=== PATIENT | male | born 1990 | race Caucasian/White ===

== ENCOUNTER 2018-05-04 08:11 | Inpatient (IN) | payer BC ==
[2018-05-04] VITALS (11 sets, daily range): BP systolic 128–144; BP diastolic 74–102
[~2018-05-04] VITALS: Ht 185.4 cm; Wt 79.0 kg
[~2018-05-04 08:11] MED LIST: BENZTROPINE MESY1 MG PO; BUSPIRONE HCL15 MG PO; GABAPENTIN600 M1 PO; HYDROXYZINE PAM25 MG PO; LEXAPRO5 M1 PO; RISPERIDONE1 MG PO
--- NOTE | 2018-05-04 08:16 | NUR ---
PT BIBA S/P DRUG OVERDOSE. PER PARAMEDICS, EMS WAS CALLED BY DAD WHO SAW PT POUR CLEAR LIQUID INTO HIS COFFEE. UPON ARRIVAL TO SCENE PT WAS COMBATIVE WITH FIRE. PT RAN FROM FIRE YELLING PROFANITIES. PTS FATHER REPORTED TO EMS THAT PT STATED HE WANTED TO "END IT". PER PARAMEDICS, PT HAS OVERDOSED ON GHB IN THE PAST. PER FIRE, PT'S VITALS WERE STABLE IN TRANSPORT. IV ESTABLISHED TO L AC 18G BY MOIZ BALDWIN. PT HAS HX OF DEPRESSION AND SCHIZOPHRENIA AND DRUG ABUSE. UPON ARRIVAL PT IS SLEEPING AND UNAROUSABLE WITH TACTILE STIMULATION. DR SOTO AT BEDSIDE FOR MSE. PT ON FULL CM. VITALS STABLE AT THIS TIME.
--- NOTE | 2018-05-04 08:40 | NUR ---
PER FATHER, PT PUT GHB IN HIS COFFEE PRIOR TO FATHER CALLING EMS, FATHER REPORTS APPROXIMATELY 1OZ
--- NOTE | 2018-05-04 08:45 | NUR ---
DR SOTO AT BEDSIDE FOR INTUBATION 0846- NARCAN 0.4 MG IVP, NO RESPONSE FROM PT 0850- SUCCINYLCHOLINE 70MG IVP 0851- PT INTUBATED BY DR SOTO
--- NOTE | 2018-05-04 08:57 | NUR ---
SPOKE W/CARLOS FROM POISON CONTROL WHO ADVISED TO CONTINUE W/RESPIRATORY SUPPORT WELL RULE OUT OTHER SUBSTANCES HE MAY HAVE TAKEN TO HARM HIMSELF. DUE TO PT'S RELATIVE ACTIVATING EMS SOON AFTER WITNESSING PT INGESTING LIQUID, AND PT CURRENTLY INTUBATED, HYPOXIA IS NO LONGER OF CONCERN. NO OTHER MEASURES OTHER THAN OBSERVATIONS NEEDED AND PT IS EXPECTED TO WAKE UP AFTER A COUPLE OF HOURS. PRIMARY RN AND DR. SOTO MADE AWARE.
[2018-05-04 09:52] LABS: BASOPHIL % 0.3 % (0-2); PLATELET COUNT 276 x10^3mcL (130-400); RED CELL DISTRIBUTION WIDTH 13.2 % (11.5-14.5)
[2018-05-04 10:03] LABS: CALCIUM 9.3 mg/dL (8.5-10.1); CARBON DIOXIDE 22.4 mmol/L (21-32); CHLORIDE SERUM 104 mmol/L (98-107); CREATININE SERUM 1.2 mg/dL (0.7-1.3); GFR1 > 60 mL/min; GLUCOSE SERUM 81 mg/dL (74-106); POTASSIUM SERUM 5.3 mmol/L (3.5-5.1); SODIUM SERUM 141 mmol/L (136-145)
--- NOTE | 2018-05-04 10:04 | NUR ---
PTS FATHER AT BEDSIDE
[2018-05-04 10:08] LABS: ALBUMIN 4.2 g/dL (3.4-5.0); ALKALINE PHOSPHATASE 90 U/L (46-116); ALT/SGPT 8 U/L (16-63); AST/SGOT 41 U/L (15-37); BILIRUBIN TOTAL 0.2 mg/dL (0.20-1.00)
[2018-05-04 10:16] LABS: TOTAL PROTEIN, SERUM 8.3 g/dL (6.4-8.2)
--- NOTE | 2018-05-04 10:57 | NUR ---
FATHER: CORBY PEDRAZA
--- NOTE | 2018-05-04 11:07 | NUR ---
PT TAKEN TO CT VIA GURKERRI BY NURSE MAGALI, RT HANNAH, AND VERIFICATION MANAGER
[2018-05-04 11:43] LABS: MAGNESIUM 2.3 mg/dL (1.8-2.4); PHOSPHOROUS 2.5 mg/dL (2.5-4.9)
[2018-05-04 11:43] LABS: microscopic required? NO
[2018-05-04 11:44] LABS: CHOLESTEROL/HDL RATIO 4.8
[2018-05-04 11:49] LABS: urine erythrocyte NEGATIVE (NEGATIVE)
[2018-05-04] MEDS ORDERED: BUSPIRONE HCL15 MG PO (11:51)
[2018-05-04] MEDS ORDERED: BENZTROPINE ME0.5 MG PO (11:51)
[2018-05-04] MEDS ORDERED: LEXAPRO10 MG PO (11:53)
[2018-05-04] MEDS ORDERED: HYDROXYZINE50 M1 PO (11:53)
[2018-05-04] MEDS ORDERED: ABILIFY5 M1 IM (11:54)
[2018-05-04] MEDS ORDERED: WELLBUTRIN SR150 M1 PO (11:55)
[2018-05-04 12:06] LABS: AMPHETAMINE QUAL UR POSITIVE (See below)
--- NOTE | 2018-05-04 12:07 | NUR ---
ATTEMPTED TO CALL REPORT TO ICU NURSE. NURSE WITH DOCTOR AND UNAVAILABLE TO RECEIVE REPORT. WILL CALL BACK IN 5 MIN
--- NOTE | 2018-05-04 12:17 | NUR ---
RECEIVED CALL FROM POISON CONTROL, THEY SUGGEST CONTINUED MONITORING OF PT VITALS AND SUPPORTIVE CARE
--- NOTE | 2018-05-04 13:02 | NUR ---
RECEIVED REPORT FROM RADHA DE LOS SANTOS. PT IS ALTERED AND INTUBATED. NO SEDATION AT THE MOMENT. OGT PATENT AND INTACT. 7.5 ETT AT 25 CM AT LL. VENT SETTINGS INCLUDE RATE: 14, TV: 500, O2: 40%, PEEP:5. LUNG SOUNDS CLEAR TO BILATERAL UPPER LOBES, DIMINISHED TO BILATERAL LOWER LOBES. S1 S2 HEART SOUNDS AUSCULTATED. PULSES MODERATE X4. SKIN IS WARM AND CONSISTENT WITH ETHNICITY. CAP REFILL <3 SECONDS X4. PERIPHERAL IV TO L FA PATENT, DRESSING CDI. NO FLUIDS RUNNING AT THIS TIME. ABD IS SOFT WITH ACTIVE BOWEL SOUDNS X4Q. OGT CONNECTED TO SUCTION, WITH DARK BROWN SECRETIONS BEING REMOVED. PARIS DRAINING VIA GRAVITY. URINE IS YELLOW WITH FAIR OUTPUT. SKIN INTACT. ALL QUESTIONS AND CONCERNS ANSWERED.
--- NOTE | 2018-05-04 13:05 | NUR ---
RECIEVED PT REPORT FROM ALINA GARCIA. NURSING UPDATES. POC DISCUSSED. PT INTUBED W/ NO SEDATION. OGT SECURE & PATENT. 7.5 ETT @ 25 LL. VENTED TO AC MODE RATE 14, 02 35%, VT 500, PEEP 5. LUNG SOUNDS CLEAR KRISHAN. S1S2 TO AUSC. PULSES MOD BUE&BLE. SKIN WARM & APPROPRIATE FOR ETHNICITY. CAP REFILL < 3 SEC. PIV TO L FA PATENT C/D/I. ABD SOFT & FLAT W/ ACTIVE BS X4. F/C SECURE & INTACT DRAINING TO GRAVITY. URINE YELLOW. SKIN INTACT. FATHER @ BEDSIDE.
--- NOTE | 2018-05-04 16:19 | NUR ---
PATIEBT RESTLESS AND ATTEMPTING TO PULL ON TUBING AND LINES. PROPOFOL INITIATED AT 10 MCG/KG/MIN TO ACHIEVE MRSS 4. WILL MONITOR PATIENT CLOSELY.
--- NOTE | 2018-05-04 18:00 | NUR ---
PT AGITATED. TRYING TO GET UP/PULL OUT ETT. RESTLESS W/ RESTRAINTS. PROPOFOL TITRATED TO 20MCG/KG/MIN. WILL CONT TO MONITOR.
--- NOTE | 2018-05-04 19:00 | NUR ---
TITRATED PROPOFOL FROM 20 TO 40 MCG PER PT AGITATION AND RESTLESSNESS. TRYING TO GET UP RESTRAINTS IN USE. FATHER REASSUMED W/ SEDATION REASONING. PT BP VS STABLE, TOLERATED WELL. WILL CONT TO MONITOR.
--- NOTE | 2018-05-04 21:30 | NUR ---
PT AGITATED. TITRATED PROPOFOL TO 50MCG/KG/MIN. RSS 4. RESPONDS TO TACTILE STIMULUS. UNABLE TO FOLLOW COMMANDS. BRISK RESPONE TO LIGHT. WILL CONT TO MONITOR.
--- NOTE | 2018-05-04 21:44 | NUR ---
TITRATED PROPOFOL FROM 40MCG TO 50MCG PER PT AGITATION/RESTLESSNESS. RSS 5. RESPONDS TO TACTILE STIMULUS. UNABLE TO FOLLOW COMMANDS RSS 5.
[2018-05-05] VITALS (12 sets, daily range): BP systolic 123–1147; BP diastolic 74–104
--- NOTE | 2018-05-05 00:45 | NUR ---
REPORT GIVEN TO CHARLOTTE PLASENCIA RN. NURSING UPDATES PROVIDED. DISCUSSED POC. ALL CONCERNS ADDRESSED. PT INTUBATED & SEDATED W/ PROPOFOL. VENTED TO AC MODE. PULSES MOD. NO EDEMA. NSR. SKIN INTACT. F/C SECURE & INTACT DRAINING TO GRAVITY. NS INFUSING.
--- NOTE | 2018-05-05 03:06 | NUR ---
PT RSS=2 AT THIS TIME ATTEMPTING TO REMOVE RESTRAINTS AND GET OUT OF BED. PT AGITATED AT THIS TIME KICKED MYSELF IN THE CHEST AT BEDSIDE. PT ON PROPOFOL @ 50MCG/KG/MIN, WILL ADMINISTER ATIVAN IVP PER EMAR.
--- NOTE | 2018-05-05 04:00 | NUR ---
PT AWAKE AT THIS TIME, EYES OPEN, ATTEMPTING TO GET OUT OF BED AND ATTEMPTING TO REACH FOR ETT/OGT, KICKING LEGS IN AIR. WHEN APPROACHED BEDSIDE, PT KICKED MYSELF IN MY CHEST AND PATIENT GESTURES "MIDDLE FINGER". CHARGE NURSE SANJU AT BEDSIDE ATTEMPTING TO CONSOLE, PT ATTEMPTING TO KICK SANJU AT THIS TIME. PT BEING COMBATIVE WITH STAFF. ANKLE RESTRAINTS ON AT THIS TIME, SKIN/PULSE PALPABLE AND WNL. DR. ACOSTA MADE AWARE.
--- NOTE | 2018-05-05 04:28 | NUR ---
PT AGITATED, ATTEMPTING TO GET OUT OF BED. PROPOFOL ON MAX DOSE OF 50 MCG/KG/MIN, WILL ADMINISTER ATIVAN PER EMAR.
--- NOTE | 2018-05-05 04:56 | NUR ---
RIGHT FOREARM 20G IV INITIATED AT THIS TIME, NO S/S OF INFILTRATION, PORT PATENT, SALINE LOCKED, DRESSING CDI.
[2018-05-05 05:20] LABS: BASOPHIL % 0.3 % (0-2); PLATELET COUNT 242 x10^3mcL (130-400); RED CELL DISTRIBUTION WIDTH 13.4 % (11.5-14.5)
--- NOTE | 2018-05-05 05:30 | NUR ---
TECHNOLOGY STRATEGIST AT BEDSIDE FOR CHEST XRAY.
[2018-05-05 05:38] LABS: CALCIUM 8.7 mg/dL (8.5-10.1); CARBON DIOXIDE 28.7 mmol/L (21-32); CHLORIDE SERUM 107 mmol/L (98-107); CREATININE SERUM 0.8 mg/dL (0.7-1.3); GFR1 > 60 mL/min; GLUCOSE SERUM 98 mg/dL (74-106); MAGNESIUM 2.1 mg/dL (1.8-2.4); PHOSPHOROUS 2.9 mg/dL (2.5-4.9); POTASSIUM SERUM 3.7 mmol/L (3.5-5.1); SODIUM SERUM 144 mmol/L (136-145)
--- NOTE | 2018-05-05 07:10 | NUR ---
GAVE REPORT TO [facility]. UPDATES GIVEN, QUESTIONS ANSWERED.
--- NOTE | 2018-05-05 07:15 | NUR ---
GAVE REPORT TO [facility]. UPDATES GIVEN, QUESTIONS ANSWERED.
--- NOTE | 2018-05-05 07:45 | NUR ---
PROPOFOL DISCONTINED AT THIS TIME. PATIENT STARTED ON FENTANYL 1MCG/KG/HR AND VERSED 1 MG/HR IV TO ACHIEVE MRSS 4. WILL MONITOR PATIENT CLOSELY.
--- NOTE | 2018-05-05 08:50 | NUR ---
SPOKE WITH DR GONZALEZ AND REPORTED PATIENT CONDITION. OKAY TO TITRATE SEDATION OFF AND PLACE PATIENT ON CPAP. PARVEEN CONTRERAS MADE AWARE.
--- NOTE | 2018-05-05 09:00 | NUR ---
SEDATION TITRATED OFF. PATIENT COOPERATIVE, CALM AND GESTURING APPROPRIATELY TO YES AND NO QUESTIONS. PATIENT PLACED ON CPAP BY PARVEEN CONTRERAS AT FIO2 28%. RR 12, VT'S [phone]. WILL MONITOR PATIENT CLOSELY.
--- NOTE | 2018-05-05 09:59 | NUR ---
PT RECIEVED IN A.M. ON PROPOFOL, SWITCHED TO VERSED/FENTANYL DRIPS, STILL PT REMAINED AGITATED SO DECIDED TO WEAN PT/AT 0845 SEDATION REMOVED AND AT 0900 PT COOPERATIVE/FOLLOWING COMMANDS/WEANING STARTED AT 0915/PT TOLERATING WELL/AT 0955 ABG DRAWN, GIVEN TO MD FOR PT EXTUBATION
--- NOTE | 2018-05-05 10:15 | NUR ---
PATIENT'S FATHER ON UNIT TO VISIT WITH PATIENT. PATIENT'S FATHER ENTERED THE ROOM, PATIENT STATED TO FATHER "I WANT TO HURT MYSELF." PATIENT'S FATHER ASKED HIM IF HE MEANT RIGHT NOW. PATIENT STATED "YES."
--- NOTE | 2018-05-05 10:37 | NUR ---
@0915, PT WAS PLACED ON CPAP 02/06 28%. PT TOLERATED CHANGES WELL. MD GONZALEZ WAS CALLED AND MADE AWARE. ABG TO FOLLOW AND PENDING RESULTS, PT TO BE EXTUBATED. PT EDUCATED AND INSTRUCTED. PT COOPERATIVE. PT OBTAINING GOOD TIDAL VOLUMES. SATURATION 100%. WILL CONTINUE TO MONITOR PT.
--- NOTE | 2018-05-05 10:41 | NUR ---
@1015, PT WAS EXTUBATED AND PLACED ON 3L CANNULA FOR COMFORT. PT TOLERATING WELL. PT SUCTIONED ORALLY. PT ALERT/VERBAL. MD GONZALEZ AT BEDSIDE AND AWARE OF CHANGES. ORDERED TO WEAN FIO2 TOLERATED (EVENTUALLY TO ROOM AIR). NO DISTRESS NOTED FROM PT. PT COOPERATIVE. WILL CONTINUE TO MONITOR PT.
--- NOTE | 2018-05-05 11:45 | NUR ---
BEDSIDE SWALLOW SCREEN COMPLETED. PATIENT ABLE TO TOLERATE JELLO, APPLE SAUCE, PUDDING AND THIN LIQUIDS WITHOUT ANY CHOKING OR GAGGING.
--- NOTE | 2018-05-05 12:53 | NUR ---
PT CURRENTLY ON ROOM AIR, TOLERATING WELL. SATURATION 98%. NO DISTRESS NOTED. PT DOING IS. RN AWARE. WILL CONTINUE TO MONITOR PT.
--- NOTE | 2018-05-05 14:53 | NUR ---
1015 pt extubated/pt alert, but forgetful/oriented to jessie/pt does deny that he tried to hurt himself or commit suicide/states he took a weird strain of ghb and admits to taking crystal meth and benzodiazipines/pt cooperative but remains forgetful/stays in room and in bed//mw
--- NOTE | 2018-05-05 16:15 | NUR ---
DR HERNANDEZ CAME TO ASSESS PATIENT AND FEELS THAT PATIENT MEETS 5150 CRITERIA. HOLD PLACED IN CHART. DR HERNANDEZ SPOKE WITH PATIENT'S FATHER AND PROVIDED POC. PATIENT INFORMED HE IS ON A [address] HERNANDEZ AND WAS ASSURED BY DR HERNANDEZ THAT HE WILL FOLLOW UP DAILY TO ASSESS HIM HE WAS RESTARTED ON HIS PSYCH MEDICATIONS TODAY.
--- NOTE | 2018-05-05 16:55 | NUR ---
PATIENT STATING HE DOES NOT LIKE TO WEAR CARDIAC MONITORING EQUIPMENT. EDUCATION PROVIDED REGARDING PURPOSE OF DONNING EQUIPMENT. PATIENT CONTINUES TO REFUSE. PATIENT ASSISTED TO BEDSIDE COMMODE AT THIS TIME. ROOM WITHIN VIEW OF NURSING STATION. CALL LIGHT WITHIN REACH.
--- NOTE | 2018-05-05 19:15 | NUR ---
RECIEVED REPORT FROM COOKER SODA. NURSING UPDATES DISCUSSED POC. RESUMED CARE OF PT. PT A&OX3. FOLLOWS COMMANDS AND COMMUNICATES NEEDS. PT ON RA W/ CLEAR LUNGS SOUNDS KRISHAN. PULSES WEAK. NSR. EENT FREE OF DISCHARGE. SKIN INTACT. VOIDS FREELY. NO IV ACCESS. PT DENIES SI. 5150 NOTED W/ PRECAUTIONS.
--- NOTE | 2018-05-05 21:00 | NUR ---
PT RESTING CALMING NI BED. SNACKS PROVIDED W/ SALTINES CRACKERS. PT DENIES SI. MOOD CALM & COOPERATIVE. POOR RECOLLECTION OF PREVIOUS DAY. STATED AGREED UPON Q4H VITALS. BED IN LOWEST POSITION. WILL CONT TO MONITOR.
--- NOTE | 2018-05-05 23:41 | NUR ---
PT RESTING CALMLY IN BED. BED IN LOWEST POSITION CLOSE TO NURSE STATION. NO ACUTE CHANGES. WILL CONT TO MONITOR.
[2018-05-06] VITALS (7 sets, daily range): BP systolic 115–140; BP diastolic 60–80
--- NOTE | 2018-05-06 00:17 | NUR ---
PT SLEEPING IN BED CALMLY. NO S/S OF DISTRESS. NO ACUTE CHANGES. BED IN LOWEST POSITION. WILL CONT TO MONITOR.
--- NOTE | 2018-05-06 02:00 | NUR ---
PT RESTING IN BED COMFORTABLY. PT MOOD SAD. LETHARGIC IN MOVEMENT & SPEECH. PT DENIES HEADACHES/DIZZINESS/PAIN. NO ACUTE CHANGES. BED IN LOWEST POSITION NEAR NURSES STATION. WILL CONT TO MONITOR.
--- NOTE | 2018-05-06 04:27 | NUR ---
PT RESTING IN BED COMFORTABLY. SPOKE W/ PT ABOUT JOB WHICH HE STATED HE WORKS AT [employer]. STATED LOVES PLAYING GOLF AND HE'S PLAYED SINCE HE WAS LITTLE. PT MOOD SEEMS SLIGHTLY IMPROVED FIRST NOTED FACIAL EXPRESSION OF A GRIN. WILL CONT TO ESTABLISH RAPPORT.
[2018-05-06 05:30] LABS: BASOPHIL % 0.8 % (0-2); PLATELET COUNT 235 x10^3mcL (130-400); RED CELL DISTRIBUTION WIDTH 13.5 % (11.5-14.5)
[2018-05-06 05:36] LABS: CALCIUM 8.6 mg/dL (8.5-10.1); CARBON DIOXIDE 28.7 mmol/L (21-32); CHLORIDE SERUM 104 mmol/L (98-107); CREATININE SERUM 0.7 mg/dL (0.7-1.3); GFR1 > 60 mL/min; GLUCOSE SERUM 98 mg/dL (74-106); MAGNESIUM 1.9 mg/dL (1.8-2.4); PHOSPHOROUS 4.5 mg/dL (2.5-4.9); POTASSIUM SERUM 3.7 mmol/L (3.5-5.1); SODIUM SERUM 141 mmol/L (136-145)
--- NOTE | 2018-05-06 06:25 | NUR ---
SPOKE W/ PT FOR EXTENSION PERIOD OF TIME. HAS ANXIETY ABOUT MENTAL HEALTH. HE USED PHONE TO CALL FATHER. SAID HE TALKED W/ FATHER ABOUT USUAL STUFF. ASK ABOUT USUAL STUFF BUT HE MISDIRECTED QUESTION. STATED HAS GOOD RELATIONSHIP WITH FATHER AND THAT HE KNOWS HE'S IN A FUNK OF BAD STUFF AND THAT HE NEEDS TO STOP DOING SOME OF THE STUFF HE'S DOING. GOOD RAPPORT BUILT. WILL ENDORSE.
--- NOTE | 2018-05-06 06:29 | NUR ---
DR GAGNON @ BEDSIDE. NURSING UPDATES. DISCUSSED POC. NO NEW ORDERS @ THIS TIME. DR AWARE OF EXTUBATION AND 5150 HOLD. CONTINUE POC.
--- NOTE | 2018-05-06 07:04 | NUR ---
REPORT GIVEN TO ONCOMING PHARMACY GENERAL MANAGER. ALL CONCERNS ADDRESSED.
--- NOTE | 2018-05-06 16:24 | NUR ---
pt son is informed that if psyche md comes, we can call his dad so that md can talk to him//kassie
--- NOTE | 2018-05-06 17:09 | NUR ---
pt remains cooperative, still very lucid, denies suicidal ideation, denies willingness to hurt himself/awaiting psyche //v/s johanny//kassie
--- NOTE | 2018-05-06 19:15 | NUR ---
RECEIVED REPORT FROM STEVE FLORES RN. RECEIVED PT ALERT/ORIENTED, SPEECH CLEAR, NO NUERO DEFICITS. DENIES ANY PAIN AT THIS TIME, DENIES ANY SUICIDAL IDEATION BUT DOES APPEAR TO BE SAD AND UNDERSTANDS EVENTS FOR HOSPITAL STAY. NO S/S OF ANY DISTRESS, DENIES SOB, HOB ELEVATED 30 DEGREES PER PT COMFORT, ROOM AIR, BED AT LOWEST SETTING, CALL LIGHT WITHIN REACH, CLEAR VIEW OF NURSING STATION AT THIS TIME. NO IV ACCESS AT THIS TIME.
[2018-05-07 03:05] VITALS: BP 122/66
--- NOTE | 2018-05-07 03:53 | NUR ---
LAB CALLED, PTT OF 67.3, HEPARIN GTT TITRATED TO 900 UNITS/HR PER HEPARIN DRIP PROTOCOL. REDUCED INFUSION BY 200 UNITS/HR FROM 1100 UNITS/HR PER HEPARIN DRIP PROTOCOL. WILL ORDER PTT FOUR HOURS.
--- NOTE | 2018-05-07 04:45 | NUR ---
RT CHAIREZ AT BEDSIDE FOR EKG.
--- NOTE | 2018-05-07 06:30 | NUR ---
PT SLEEPING BUT EASILY AROUSABLE AT THIS TIME, IN NO ACUTE RESP DISTRESS OR SOB, DENIES ANY CHEST PAIN OR PAIN WHEN ASKED. HOB ELEVATED 30 DEGREES, BED AT LOWEST SETTING, CALL LIGHT WITHIN REACH, CLEAR VIEW OF NURSING STATION.
--- NOTE | 2018-05-07 07:25 | NUR ---
GAVE REPORT TO RADHA MCGEE. UPDATES GIVEN, QUESTIONS ANSWERED.
[2018-05-07 07:29] VITALS: BP 123/66
--- NOTE | 2018-05-07 07:29 | NUR ---
RECEIVED PATIENT AWAKE/ALERT/CALM IN BED, INTRODUCE TO PATIENT. DENIES PAIN. NO ACUTE DISTRESS NOTED. NO IV ACCESS. NO TELE MONITOR. POC EXPLAINED. CALL LIGHT IN REACH.
[2018-05-07 07:39] VITALS: Ht 185.4 cm; Wt 79.0 kg
--- NOTE | 2018-05-07 08:45 | NUR ---
PATIENT AWAKE IN BED NO COMPLAIN. ADMINISTERED ALL PO MEDS. HEPARIN SQ INJECTED TO RT ABDOMEN, PATIENT TOLERATED WELL. NEEDS MET. CALL LIGHT IN REACH. CONT TO MONITOR. UPDATE REGARD PSYCH CONSULT.
[2018-05-07 09:37] VITALS: BP 123/66
--- NOTE | 2018-05-07 10:08 | NUR ---
DR. FLEMING, DR. ESCOBAR, LUCIANA RN AND PRIMARY RN AT BEDSIDE FOR MORNING ROUNDS. PLAN OF CARE DISCUSSED. WILL CONT TO MONITOR.
--- NOTE | 2018-05-07 10:10 | NUR ---
PATIENT RESTING IN BED WITH DR. GRIJALVA AT BEDSIDE DISCUSS WITH PATIENT PER PSYCH RECOMMENDED PATIENT TX TO INPT PSYCH FACILITY, PATIENT AGREE WITH PLAN. PATIENT'S FATHER- CORBY PEDRAZA CALL FOR UPDATE. WILL INFORM PATIENT AND FATHER REGARD TRANSFER FROM .
[2018-05-07 12:45] VITALS: BP 133/66
--- NOTE | 2018-05-07 12:45 | NUR ---
PATIENT SIT UP IN BED NO COMPLAIN. STATED DONE WITH LUNCH. DON'T NEED ANYTHING AT THIS TIME. CALL LIGHT IN REACH.
--- NOTE | 2018-05-07 15:00 | NUR ---
PATIENT RESTING IN BED NO COMPLAIN, CALM. UPDATE STILL WAITING FOR PSYCH PLACEMENT.
[2018-05-07 15:45] VITALS: BP 130/77
--- NOTE | 2018-05-07 15:56 | NUR ---
CALL [facility] SPOKE TO LEONARD GAVE REPORT, PER [facility] CAN SET UP TRANSPORTATION ANYTIME. WAS PAGE FOR DISCHARGE. PATIENT WAS AWARE OF DISCHARGE TO [facility]. NO TIME FOR OPTICAL LATHE OPERATOR.
[2018-05-07 16:55] VITALS: BP 130/77
--- NOTE | 2018-05-07 17:13 | NUR ---
DR. GRIJALVA HERE TO SIGN TRANSFER FORM. PATIENT AND FATHER WAS AWARE CLERK ENTRY LEVEL TIME 6PM TO [facility]. PT'S BELONGINGS GIVEN BACK TO PATIENT.
--- NOTE | 2018-05-07 17:42 | NUR ---
PATIENT ALREADY DRESS RESTING IN BED WITH FATHER CORBY AT BEDSIDE, DISCHARGE INSTRUCTION EXPLAINED, AWAITING FOR TRANSPORTATION TO [facility].
--- NOTE | 2018-05-07 18:19 | NUR ---
PATIENT SAT UP IN BED EATING HIS DINNER, [facility] ARRIVE AND REPORT GIVEN TO EMT. WAITING FOR PATIENT TO FINISH DINNER. NO IV ACCESS.
--- NOTE | 2018-05-07 18:26 | NUR ---
GLASSES AND BLACK CELL PHONE WITH PATIENT.
--- NOTE | 2018-05-07 18:31 | NUR ---
PATIENT ON THE GUERNEY, TRANSFER TO [facility] AT THIS TIME. ALL BELONGINGS WITH PATIENT.
== END 2018-05-07 18:30 | DRG 917 ==
LOC: ED 08:11 → IC 10:44
PROVIDERS: Emergency Medicine; ADMIT General Practice
PROC: 0BH17EZ Insertion of Endotracheal Airway into Trachea, Via Natural or Artificial Opening (ICD-10-PCS; principal; 2018-05-04)
PROC: 5A1945Z Respiratory Ventilation, 24-96 Consecutive Hours (ICD-10-PCS; 2018-05-04)
DX: T41.291A Poisoning by other general anesthetics, accidental (unintentional), initial encounter (principal); J96.21 Acute and chronic respiratory failure with hypoxia; G92 Toxic encephalopathy; N17.9 Acute kidney failure, unspecified; F32.9 Major depressive disorder, single episode, unspecified; F10.10 Alcohol abuse, uncomplicated; F20.9 Schizophrenia, unspecified; F12.90 Cannabis use, unspecified, uncomplicated; F15.10 Other stimulant abuse, uncomplicated; J44.9 Chronic obstructive pulmonary disease, unspecified; Y90.9 Presence of alcohol in blood, level not specified; F17.210 Nicotine dependence, cigarettes, uncomplicated; E87.5 Hyperkalemia; E78.5 Hyperlipidemia, unspecified; Y92.89 Other specified places as the place of occurrence of the external cause
CPT/HCPCS: 36600; 83880; 94150; A4628; G0480; J1644; J2060; J2250; J2310; J2704; J3010; J3490; J7030; J7620; Q0092; Q0177

== ENCOUNTER 2019-02-03 17:44 | Inpatient (IN) | payer BC ==
[~2019-02-03] VITALS: Ht 177.8 cm; Wt 65.0 kg
[~2019-02-03 17:44] MED LIST changes: +ABILIFY5 M1 IM; +BENZTROPINE ME0.5 MG PO; +HYDROXYZINE50 M1 PO; +LEXAPRO10 MG PO; +WELLBUTRIN SR150 M1 PO
--- NOTE | 2019-02-03 17:45 | NUR ---
PT ARRIVED TO ED WITH BVM IN PROGRESS AND UNRESPONSIVE, WITH GCS OF 3. PER MEDICS PT WAS FOUND UNRESPONSIVE BY PT'S FATHER WITH LAST KNOWN WELL BEING "THIS MORNING", PER MEDICS PT HAS A HX OF DEPRESSION AND PREVIOUS ODS AND DRUG AND ETOH USE. PER MEDICS PT WAS FOUND UNRESPONSIVE AT HOME WITH NO "PARAOHERNALIA FOUND, PT'S FATHER STATED HE LOOKED AND DIDN'T FIND ANYTHING", BS ON SCENE WAS 170. 4MG OF IVP ZOFRAN, 2MG OF NARCAN IN, AND 2MG OF IVP ZOFRAN GIVEN, BY MEDICS, PER REPORT. UPON TRANSFERRING PT TO [facility] FROM [facility] PT BEGAN TO VOMIT BROWN LIQUID WITH CHUNKS FOOD-LIKE SUBSTANCE. PT PLACED ON FULL CM.
[2019-02-03 17:50] VITALS: Ht 177.8 cm; Wt 65.0 kg
[2019-02-03 18:01] VITALS: BP 142/104
[2019-02-03 18:06] VITALS: BP 142/104
--- NOTE | 2019-02-03 18:09 | NUR ---
XRAY AT BEDSIDE.
--- NOTE | 2019-02-03 18:15 | NUR ---
DR SLOAN, OG TUBE IN PLACE, INFORMED OF RED/BROWN EMESIS IN SUCTION CANISTER FROM OG TUBE, STS OK TO PLACE PT ON LOW INTERMITTENT SUCTIONING.
--- NOTE | 2019-02-03 18:31 | NUR ---
PT TAKEN TO CT WITH MYSELF, RT [place] INNER TUBE INSERTER MONIKA, ON FULL CM.
[2019-02-03 19:03] LABS: BASOPHIL % 0.5 % (0-2); PLATELET COUNT 234 x10^3mcL (130-400); RED CELL DISTRIBUTION WIDTH 14.2 % (11.5-14.5)
--- NOTE | 2019-02-03 19:15 | NUR ---
DR SLOAN AT BEDSIDE SPEAKING WITH FATHER, PER PT'S FATHER PT WAS LAST SEEN, "ON MY HOME CAMERAS AT 3:37PM TURN ON THE LIGHT TO THE RESTROOM AT 5 I CALLED AND THERE WAS NO ANSWER. WHEN I GOT HOME I FOUND HIM ON THE FLOOR WITH HIS PANTS OFF AND HE DID HAVE POOP IN THE TOILET, SO I'M ASSUMING HE WAS POOPING WHEN THIS HAPPENED. HE DID GO TO URGENT CARE YESTERDAY AND WAS GIVEN AN ANTIBIOTIC FOR AN INFECTION ON HIS R HAND BECAUSE HE USED IV DRUGS. HE HAS USED HEROIN AND METH IN THE PASSED. HE ALSO HEARS VOICES, AND HAS BEEN PUT ON 5150S IN THE PASSED, HE WAS ACTUALLY AT [facility] ON A 5150 ABOUT 1 MONTH AGO FOR TRYING TO HURT HIMSELF, HE PUNCHED AND BROKE THE SHOWER DOOR AND HIS BEDROOM WINDOW HE DID TELL ME HE WAS DATING SOMEONE FROM WORK AND HE SEEMED SUPER HAPPY, AND LIKE HE WASN'T HEARING THE VOICES. LAST NIGHT HE WAS TALKING TO HIMSELF AND SEEMED LIKE A HE WAS HEARING THE VOICES. HE GETS ABILIFY INJECTIONS EVER 28 DAYS, HAS BEEN SEEING HIS PYSCHIATRIST AND THERAPIST. HIS MOTHER DID PASS AWAY 6 YEARS AGO AND HE WAS REALLY CLOSE TO HER SO THAT HAS AFFECTED HIM A LOT, HE HAS VOICED IN THE PAST THAT HE DOESN'T WANT TO BE HERE, BUT I THINK HE JUST LOOKS FOR ATTENTION AND IS JUST REALLY LONELY, HIS FRIENDS HE USED TO DO DRUGS WITH ALL MOVED OUT OF THE AREA AND ALL THE FRIENDS THAT DON'T DO DRUGS JUST STOPPED TALKING TO HIM".
--- NOTE | 2019-02-03 19:20 | NUR ---
RECIEVED REPORT FROM OK GARCIA. PT IS RESTING ON GURNEY IN NAD. PT HAS ET TUBE, VENTILATOR IN PLACE WITH NO COMPLICATIONS, RESP E/U. PROPOFOL RUNNING AT 5 MCG/KG/MIN V/S STABLE. PT PUPILS REMAIN PINPOINT. PT IS NONRESPONIVE TO VERBAL OR DEEP TACTILE STIMULI. SKIN IS COOL TO TOUCH. PULSES TO BUE AND RLE PALPABLE. PEDAL PULSE TO LLE NOT PALPABLE AND UNABLE TO FIND ON DOPPLER, POPLITEAL PULSE PALPABLE TO LLE. DR SLOAN AWARE. L FOOT NOTED BLANCABLE, SKIN COLOR TO L FOOT SAME R FOOT. NO DISCOLORATION NOTED.COARSE CRACKLES NOTED TO BILATERAL LUNGS UPON ASCULTATION. ABDOMEN IS SOFT AND ROUND WITH BOWEL SOUNDS PRESENT IN ALL QUADRANTS. IV 20G NOTED TO LEFT HAND NOTED RUNNING PROPOFOL, IV 20G TO RIGHT HAND SALINE LOCK, FLUSHES WITH NO COMPLICATIONS. CM AND [address] [place] IN PLACE WITH CLEAR YELLOW URINE NOTED IN COLLECTION BAG. CAP REFILL NOTED SLUGGISH TO BUE AND BLE. OG TUBE IN PLACE AND ON RUNNING ON INTERMITTENT SUCTION PER MD SLOAN ORDERS. WILL CONTINUE TO MONITOR.
[2019-02-03 19:25] LABS: CALCIUM 8.5 mg/dL (8.5-10.1); CARBON DIOXIDE 25.1 mmol/L (21-32); CHLORIDE SERUM 104 mmol/L (98-107); CREATININE SERUM 0.9 mg/dL (0.7-1.3); GFR1 > 60 mL/min; GLUCOSE SERUM 87 mg/dL (74-106); POTASSIUM SERUM 3.9 mmol/L (3.5-5.1); SODIUM SERUM 142 mmol/L (136-145)
[2019-02-03 19:29] LABS: ALBUMIN 4.1 g/dL (3.4-5.0); ALKALINE PHOSPHATASE 88 U/L (46-116); ALT/SGPT 6 U/L (16-63); AST/SGOT 27 U/L (15-37); BILIRUBIN TOTAL 0.48 mg/dL (0.20-1.00); TOTAL PROTEIN, SERUM 7.7 g/dL (6.4-8.2)
[2019-02-03 19:30] VITALS: BP 146/101
[2019-02-03 19:32] LABS: CHOLESTEROL 227 mg/dL (<200)
[2019-02-03 19:33] LABS: microscopic required? NO
--- NOTE | 2019-02-03 19:41 | NUR ---
DR SLOAN AT BEDSIDE FOR DOPPLER ASSESSMENT OF LLE.
[2019-02-03 19:44] LABS: urine erythrocyte NEGATIVE (NEGATIVE)
[2019-02-03 20:10] LABS: AMPHETAMINE QUAL UR POSITIVE (See below)
--- NOTE | 2019-02-03 20:14 | NUR ---
PT NOTED FLICKING EYE LIDS RAPIDLY AND THEN THRASHING BUE AND BLE, PT BEGAN OPENING EYES AND TRACKING. PT BEGAN GAGGING AND CRYING WHILE MOVING HEAD. NARA RN, OK RN, AND DENNY RN AT BEDSIDE FOR ASSISTANCE. SOFT RESTAINTS PLACED TO BUE FOR PT SAFETY, MD SINCLAIR AT BEDSIDE. RT ZULEMA AT BEDSIDE FOR SUCTIONING. BP NOTED 148/122 MAP 129, O2 SAT AT 94% ON VENTILATOR, HR OF 112. PROPOFOL TURNED UP TO 20 MG/KG/MIN. MD SINCLAIR AWARE. PT REMAINS ON CM, 02 MONITOR, WITH ET TUBE AND VENTILATOR IN PLACE. WILL CONTINUE TO MONITOR.
--- NOTE | 2019-02-03 20:14 | NUR ---
DR FLEMING MADE AWARE OF DR SLOAN'S ADDITIONAL ORDER OF ARTERIAL DOPPLER OF PT'S LLE. PER DR FLEMING RESIDENT DR HELM PAGED AND NOTIFIED OF ARTERIAL DOPPLER ORDER, STS SHE WILL ARRIVE TO ED TO ASSESS PT.
--- NOTE | 2019-02-03 20:15 | NUR ---
DR HELM AT BEDSIDE FOR MSE.
[2019-02-03 20:20] LABS: MAGNESIUM 2.4 mg/dL (1.8-2.4); PHOSPHOROUS 3.7 mg/dL (2.5-4.9)
--- NOTE | 2019-02-03 20:20 | NUR ---
PT NOTED EYES CLOSED AND RESTING BUT RESPONDING TO NOXIOUS STIMULI AND MOVING EXTEMITIES IN RESPONSE. BP NOTED 146/107 MAP 120 HR 106, O2 100 ON VENTILATOR. PROPOFOL REMAINS AT 20 MCG/KG/MIN.
--- NOTE | 2019-02-03 20:41 | NUR ---
ZULEMA RT AT BEDSIDE. PT RESPONDING TO NOXIOUS STIMULI BY MOVING BUE AND BLE, OPENING EYES, AND GAGGING. MD HELM AWARE. BP NOTED 135/102 MAP 113, HR 112, 02 AT 98% ON VENTILATOR. PROPOFOL INCREASED TO 25 MCG/KG/MIN. CM AND [address]
--- NOTE | 2019-02-03 20:45 | NUR ---
PT NOTED RESTING ON GURNEY WITH EYES CLOSED. PT NOT MOVING BUE AND BLE AT THIS TIME. BP NOTED 153/105 MAP 121, HR 100, 02 99 % ON VENTILATOR. PROPOFOL REMAINS AT 25 MCG/KG/MIN. CM AND [address] WILL CONTINUE TO MONITOR.
--- NOTE | 2019-02-03 20:55 | NUR ---
ULTRASOUND AT BEDSIDE
--- NOTE | 2019-02-03 20:59 | NUR ---
PT NOTED MOVED BUE AND BLE, GAGGING, AND FLICKERING EYE LIDS, BP BNOTED 147/105 MAP 121, HR 111, O2 AT 99 %. PT PULLING AT RESTRAINTS, PROPOFOL INCREASED AT 30 MCG/MIN/KG. MD SINCLAIR PAGED.
--- NOTE | 2019-02-03 21:04 | NUR ---
BP NOTED 159/102 MAP 121, HR 116, 02 SAT AT 99% ON VENTILATOR. PROPOFOL REMAINS AT 30 MCG/KG/MIN.
--- NOTE | 2019-02-03 21:16 | NUR ---
PT NOTED MOVING BUE AND BLE. BP NOTED 144/102 MAP 102 HR 123, 02 AT 100 ON VENTILATOR, PROPOFOL INCREASED TO 35 MCG/KG/MIN.
--- NOTE | 2019-02-03 21:23 | NUR ---
BP NOTED 153/92 MAP 112, HR 141, 02 AT 100 % ON VENTILATOR. PT NOTED BITING ON ET TUBE. RT PAGED. VENTILATOR ALARMING. PT NOTED TO BE RESTLESS. JERKING BLE, NOTED GAGGING AND OPENING EYES. YELLOW THICK GARCIA DRAINAGE UPON SUCTIONING. PROPOFOL INCREASED TO 40 MCG/KG/MIN.
[2019-02-03 21:25] VITALS: BP 144/96
--- NOTE | 2019-02-03 21:25 | NUR ---
RT CHAIREZ AT BEDSIDE FOR SUCTIONING.
--- NOTE | 2019-02-03 21:27 | NUR ---
BP NOTED 144/96 MAP 105, HR 154, O2 AT 98 % ON VENTILATOR. MD SINCLAIR MADE AWARE OF PTS HR OF 154. PROPOFOL REMAINS AT 40 MCG/KG/MIN. PER MD SINCLAIR, STAT EKG AND SHE WOULD COME TO BEDSIDE.
--- NOTE | 2019-02-03 21:34 | NUR ---
MD SINCLAIR AT BEDSIDE FOR RE-EVALUATION. PT BP NOTED 137/87 MAP 109 MAP HR, 140, O2 SAT AT 99 % ON VENTILATOR. PT REMAINS ON 40 MCG/KG/MIN. CM AND [address] PT NOTED TWITCHING BLE STILL NOTED TWITCHING BLE. WILL CONTINUE TO MONITOR
--- NOTE | 2019-02-03 21:37 | NUR ---
CARDIOPULMONARY TECHRomeo WINCHESTER AT BEDSIDE FOR EKG.
--- NOTE | 2019-02-03 21:39 | NUR ---
PT BP NOTED 146/95 MAP 109, HR 135, O2 AT 100 % ON VENTILATOR. MD SINCLAIR AT BEDSIDE FOR EKG, STATES EKG SHOWS SINUS TACH. MD SINCLAIR AWARE THAT PT CONTINUES TO BITE ON ET TUBING AND PULL AT RESTRAINTS. PROPOFOL REMAINS AT 40 MCG/KG/MIN. RECTAL TEMP NOTED 100.2. PER MD SINCLAIR GIVE 975 MG TYLENOL RECTALLY AT THIS TIME.
--- NOTE | 2019-02-03 21:45 | NUR ---
BP NOTED 156/94 MAP 111, HR 136, 02 AT 95 % ON VENTILATOR. PT NOTED TWITCHING BLE BUT EYES REMAINS CLOSED. PT DOESNT NOT APPEAR TO BE GAGGING AT THIS TIME. BUE SOFT RESTRAINTS REMAIN IN PLACE FOR PT SAFETY. PROPOFOL REMAINS AT 40 MCG/KG/MIN.
--- NOTE | 2019-02-03 21:59 | NUR ---
PT NOTED TWITCHING BLE AT THIS TIME. BP NOTED 150/93 MAP 105 HR 137, O2 AT 100 % ON VENTILATOR. CM AND [address] PROPOFOL REMAINS AT 40 MCG/KG/MIN, WILL CONTINUE TO MONITOR.
--- NOTE | 2019-02-03 22:16 | NUR ---
BP NOTED 135/91 MAP 105, HR 43, 02 AT 99 % ON VENTILATOR. PT OPENING EYES TO VERBAL STIMULI AND NOTED MOVING BUE AND BLE, PULLING AT RESTAINTS AND BITING ON ET TUBE. PROPOFOL INCREASED TO 45 MCG/KG/MIN.
--- NOTE | 2019-02-03 22:28 | NUR ---
PT NOTED MOVING BUE, BLE, AND TRUNK AROUND IN BED. PT OPENING EYES AND BITING DOWN ON ET TUBE. PT PULLING AT RESTRAINTS AND GAGGING. PT BP NOTED 156/93 MAP 102, HR 142, O2 AT 100 % ON VENTILATOR. PROPOFOL INCREASED TO 45 MCG/KG/MIN. CM AND [address] VENTIL[address] PLACE NOTED WITH NO COMPLICATIONS. BUE SOFT RESTAINTS IN PLACE FOR PT SAFETY. WILL CONTINUE TO MONITOR.
--- NOTE | 2019-02-03 22:45 | NUR ---
PROPOFOL DISCONTINUED AT THIS TIME PER MD ORDER.
--- NOTE | 2019-02-03 22:54 | NUR ---
FENTANYL AND VERSED DRIPS INFUSING, PT RESTING ON GURNEY IN NAD. PT NOT NOTED MOVING EXTREMITIES AT THIS TIME. PT BP NOTED 136/75 MAP 95, HR 137, 02 SAT NOTED 99B % ON VENTILATOR, TEMP 100.4 RECTALLY . CM AND [address]
--- NOTE | 2019-02-03 23:01 | NUR ---
REPORT GIVEN TO NORMAN GARCIA, TO ASSUME CARE OF PT.
--- NOTE | 2019-02-03 23:10 | NUR ---
PT FATHER AT BEDSIDE FOR UPDATE. PER PT FATHER HE WOULD WAIT IN LOBBY UNTIL PT TRANSFERED TO ICU.
--- NOTE | 2019-02-03 23:15 | NUR ---
FENTANYL AND VERSED INFUSING AT ORDERED RATE. PT NOTED RESTING ON GURNEY WITH EYES CLOSED. PT OCCASIONALLY GRIMACES AND RESPONDS TO NOXIOUS STIMULI BUT IS NOT NOTED PULLING AT RESTRAINTS OR MOVING AROUND AT THIS TIME. CM AND [address] VENTIL[address] PLACE AND FUNCITONING WITH NO COMPLICAITONS. PARIS REMAINS IN PLACE. WILL CONTINUE TO MONITOR.
--- NOTE | 2019-02-03 23:45 | NUR ---
PT TRANSFERED TO ICU AT THIS TIME VIA [facility] BY MYSELF, [place] EMT, ZULEMA RT, AND PT FATHER CORBY. IV CONTINUES TO RUN AT ORDERED RATE WITH NO COMPLICATIONS. IV FLUIDS ENDORSED TO NORMAN GARCIA. PT REMAINS ON VENTILATOR VIA ET TUBE WITH NO COMPLICATIONS NOTED. PARIS IN PLACE, DRAINING WITH NO COMPLICATIONS. PT NOTED MOVING EYES TO NOXIOUS STIMULI WITH MOVEMENT AND NOTED PULLING AT RESTRAINTS. BUE SOFT RESTRAINTS REMAIN IN PLACE FOR PT SAFETY. TRANSPORT CM IN PLACE, PT NOTED SINUS TACH ON MONITOR. NORMAN RN AT BEDSIDE TO ASSUME CARE OF PT WITH SWAGER OPERATORGRAPPLER. PT TRANSFERED TO ICU [facility] WITH NO INCIDENCES NOTED. RECTAL TEMPERATURE PROBE IN PLACE. PT BELONGINGS TAKEN WITH PT. NORMAN GARCIA ASSUMED CARE OF PT AT THIS TIME.
[2019-02-03 23:50] VITALS: BP 132/64
[2019-02-04] VITALS (8 sets, daily range): BP systolic 113–132; BP diastolic 64–84
[2019-02-04 05:55] LABS: PLATELET COUNT 221 x10^3mcL (130-400); RED CELL DISTRIBUTION WIDTH 14.1 % (11.5-14.5)
[2019-02-04 06:04] LABS: BASOPHIL % 0 % (0-2)
[2019-02-04 06:13] LABS: CALCIUM 8.2 mg/dL (8.5-10.1); CARBON DIOXIDE 25.1 mmol/L (21-32); CHLORIDE SERUM 108 mmol/L (98-107); CREATININE SERUM 0.9 mg/dL (0.7-1.3); GFR1 > 60 mL/min; GLUCOSE SERUM 103 mg/dL (74-106); MAGNESIUM 1.5 mg/dL (1.8-2.4); POTASSIUM SERUM 3.7 mmol/L (3.5-5.1); SODIUM SERUM 143 mmol/L (136-145)
--- NOTE | 2019-02-04 07:15 | NUR ---
RECEIVED REPORT FROM NORMAN FENCE MAKER. ALL QUESTIONS ANSWERED AND ADDRESSED. ASSUMING CARE AT THIS TIME.
--- NOTE | 2019-02-04 07:59 | NUR ---
Received pt from ER at 2341. Pt follows simple commands. Adequate urine output from palmer. Versed and fentanyl infusing. SBAR done with RADHA Vázquez. Skin assessed. High risk medications identified and lines traced.
--- NOTE | 2019-02-04 08:15 | NUR ---
PT PLACED ON CPAP AT THIS TIME.
--- NOTE | 2019-02-04 08:30 | NUR ---
DR. GONZALEZ AT BEDSIDE ASSESSING PT. NURSING UPDATES. STATED FOR PT TO HAVE WEANING TRIALS AND TO TITRATE SEDATION OFF. WILL CARRY OUT ORDERS.
--- NOTE | 2019-02-04 08:30 | NUR ---
VERSED TITRATED TO 0.75 MG/HR AND FENT @ 0.5 MCG/KG/HR FOR WEANING TRIALS/CPAP
--- NOTE | 2019-02-04 09:00 | NUR ---
CONTRERAS FROM [facility]ISON [facility]OL CALLED FOR UPDATES ON PT. STATES FOR CONTINUOUS MONITORING
--- NOTE | 2019-02-04 09:24 | NUR ---
VERSED AND FENT TURNED OFF AT THIS TIME FOR WEANING TRIALS
--- NOTE | 2019-02-04 10:00 | NUR ---
RESTRAINTS REMOVED AT THIS TIME. PT UNDERSTANDS AND AGREES TO NOT REMOVE LINES/TUBES/EQUIPMENT. WILL CLOSELY MONITOR.
--- NOTE | 2019-02-04 10:10 | NUR ---
MARY RT AT BEDSIDE WITH RT STUDENTS PREPARING FOR EXTUBATION. EXTUBATION SUCCESSFUL WITH NO COMPLICATIONS. PT PLACED ON 2L NC. VSS. WILL CONT TO MONITOR.
--- NOTE | 2019-02-04 12:02 | NUR ---
PT STATING THAT HE WANTS TO GO AMA. DR. SCHAEFER AT BEDSIDE DISCUSSING RISKS OF LEAVING W/O RECEIVING RECOMMENDED CARE. RISKS DISCUSSED INCLUDE SOB, CARDIAC EVENT, SUDDEN . PT VERBALIZED UNDERSTANDING AND STILL INSISTS ON LEAVING AMA. AMA FORM SIGNED BY PT. PT'S FATHER CALLED AT THIS BUT NO ANSWER, LEFT A VOICEMAIL REGARDING PT'S WISHES.
--- NOTE | 2019-02-04 12:33 | NUR ---
PT DISCONNECTED FROM MONITORS. PARIS REMOVED. PIV TO LAC AND R HAND REMOVED WITH DRESSINGS CDI. SECURITY CALLED AT THIS TIME TO ESCORT PATIENT OFF UNIT.
--- NOTE | 2019-02-04 12:37 | NUR ---
SECURITY ON UNIT TO ESCORT PT. DR. SCHAEFER AWARE. ALL BELONGINGS WITH PT.
== END 2019-02-04 12:37 | disposition left against medical advice (07) | DRG 917 ==
LOC: ED 17:44 → IC 19:31
PROVIDERS: Student in an Organized Health Care Education/Training Program; ADMIT Internal Medicine
PROC: 0BH17EZ Insertion of Endotracheal Airway into Trachea, Via Natural or Artificial Opening (ICD-10-PCS; principal; 2019-02-04)
PROC: 5A1935Z Respiratory Ventilation, Less than 24 Consecutive Hours (ICD-10-PCS; 2019-02-04)
DX: T40.7X1A Poisoning by cannabis (derivatives), accidental (unintentional), initial encounter (principal); G92 Toxic encephalopathy; J96.21 Acute and chronic respiratory failure with hypoxia; F41.9 Anxiety disorder, unspecified; F32.9 Major depressive disorder, single episode, unspecified; F17.210 Nicotine dependence, cigarettes, uncomplicated; E78.5 Hyperlipidemia, unspecified; F12.10 Cannabis abuse, uncomplicated; F20.9 Schizophrenia, unspecified; E78.2 Mixed hyperlipidemia; Z53.21 Procedure and treatment not carried out due to patient leaving prior to being seen by health care provider; Y92.89 Other specified places as the place of occurrence of the external cause; Z72.89 Other problems related to lifestyle; Z79.899 Other long term (current) drug therapy
CPT/HCPCS: 36600; A4628; G0378; G0480; J2250; J2405; J2543; J2704; J3010; J3490; J7030; Q0092